=== PATIENT | female | born 1985 | race Two or more races ===

== ENCOUNTER 2016-10-22 09:25 | Emergency (ER) | payer OTHER ==
[~2016-10-22 09:25] MED LIST: BENTYL20 MG PO; FAMOTIDINE PO; FLEXERIL10 MG PO; KEFLEX500 MG PO; NAPROSYN500 MG PO; ZOFRAN ODT4 MG PO; ZOFRANODT PO
[2016-10-22 09:27] LABS: URINE SOURCE CLEAN CATCH
[2016-10-22 09:30] LABS: BASOPHIL% 0.6 % (0-2.5); DIFF IND NO; EOSINOPHIL% 0.5 % (0.0-7.0); HEMATOCRIT 41.9 % (35.0-45.0); HEMOGLOBIN 13.5 gm/dL (12.0-16.0); LYMPHOCYTE# 1.1 X10e3 (1.0-3.5); LYMPHOCYTE% 13.6 % (17.0-45.0); MEAN CELL VOLUME 79.5 FL (83-96); MEAN CORPUSCULAR HEMOGLOBIN 25.7 PG (28-34); MEAN CORPUSCULAR HGB CONC 32.3 g/dL (30-36); MEAN PLATELET VOLUME 9.3 FL (6.5-11.5); MONOCYTE# 0.3 X10e3 (0-1.0); MONOCYTE% 4.3 % (3.0-12.0); NEUTROPHIL# 6.5 X10e3 (1.5-7.1); PLATELET COUNT 199 X10e3 (140-420); RED BLOOD COUNT 5.27 X10e (3.90-5.30); RED CELL DISTRIBUTION WIDTH 13.4 % (11.0-15.5); WHITE BLOOD COUNT 8.1 X10e3 (4.0-10.5)
[2016-10-22 09:31] LABS: URINE APPEARANCE CLEAR; URINE BILIRUBIN NEG (NEG); URINE BLOOD NEG (NEG); URINE COLOR YELLOW; URINE GLUCOSE NEG (NEG); URINE KETONE NEG (NEG); URINE LEUKOCYTE ESTERASE NEG (NEG); URINE NITRATE NEG (NEG); URINE PH 5.5 (5-8); URINE PROTEIN NEG (NEG); URINE SPECIFIC GRAVITY 1.001 (1.003-1.035); URINE UROBILINOGEN 0.2 MG/DL (NEG)
[2016-10-22 10:08] LABS: ALBUMIN SERUM 4.7 g/dL (3.5-5.0); BILIRUBIN, DIRECT 0.2 mg/dL (0.0-0.2); BILIRUBIN,INDIRECT 1.2 mg/dL (0.0-0.9); BILIRUBIN,TOTAL 1.4 mg/dL (0.2-2.0); BUN/CREATININE RATIO 18.33; CALCIUM SERUM 9.7 mg/dL (8.4-10.2); CREATININE SERUM 0.6 mg/dL (0.6-1.4); GLOM FILT RATE Estimated 123.2 mL/min (>60); POTASSIUM 3.7 mmol/L (3.5-5.1); PROTEIN TOTAL SERUM 8.7 g/dL (6.0-8.3)
[2016-10-22 10:15] LABS: CULTURE INDICATED? NO
== END 2016-10-22 10:28 | disposition home or self-care (01) ==
LOC: CFTX 09:25
PROVIDERS: Nurse Practitioner
DX: R19.7 Diarrhea, unspecified (principal); R11.0 Nausea
CPT/HCPCS: 36415; 80048; 80076; 81003; 82150; 83690; 84703; 85025; 99283